=== PATIENT | female | born 1935 | race Caucasian/White ===

== ENCOUNTER 2017-09-11 10:06 | Day surgery (SDC) | payer MEDICARE, OTHER ==
[2017-09-11] MEDS: Phenylephrine 10% Ophth Soln 5 ML Bot EYERT SCH ×3 (10:27→11:02)
[2017-09-11] MEDS ORDERED: Sodium Chloride 0.9% 5 ML Syringe FLUSH PRN (10:30)
[2017-09-11] MEDS ORDERED: Gatifloxacin 0.5% Ophth Soln 2.5 ML Bot EYERT SCH (10:30)
[2017-09-11] MEDS ORDERED: Lactated Ringers 1,000 ML IV SCH (10:30)
[2017-09-11] MEDS: Cyclopentolate 1% Opth Soln 2 ML Bottle EYERT SCH ×3 (10:40→11:12)
[2017-09-11] MEDS ORDERED: Water For Irrigation,Sterile 1,500 ML Container ONE (12:20)
[2017-09-11] MEDS ORDERED: Balanced Salt Solution Ophth Irrig 15 ML Bottle EYERT ONE (12:20)
[2017-09-11] MEDS ORDERED: Balanced Salt Solution Plus Ophth Irrig 500 ML Bottle IOCULAR ONE (12:20)
[2017-09-11] MEDS ORDERED: Carbachol 0.01% Intraocular 1.5 ML Vial EYERT ONE (12:21)
[2017-09-11] MEDS ORDERED: Dexamethasone/Neomycin/Polymyxin B Ophth Oint 3.5 GM Tube EYERT ONE (12:21)
[2017-09-11] MEDS ORDERED: EPINEPHrine 1 MG/ML SDV ONE (12:21)
[2017-09-11] MEDS ORDERED: Lidocaine 2% with EPINEPHrine 1:100,000 20 ML MDV INJECT ONE (12:21)
[2017-09-11] MEDS ORDERED: Lidocaine 1% 10 ML MDV INFILT ONE (12:22)
[2017-09-11] MEDS ORDERED: Hyaluronate Sodium 1% 0.85 ML Syringe IOCULAR ONE (12:22)
[2017-09-11] MEDS ORDERED: Tetracaine HCl/PF 0.5% 4 ML Bottle EYEBOTH ONE (12:22)
[2017-09-11 12:48] VITALS: BP 155/33
--- NOTE | 2017-09-12 08:42 | OR ---
DATE OF SURGERY: 09/11/2017 SURGEON: Eriberto Sánchez MD PREOPERATIVE DIAGNOSIS: Cataract, right eye. POSTOPERATIVE DIAGNOSIS: Cataract, right eye. OPERATION PERFORMED: Phacoemulsification with posterior chamber lens insertion, right eye. HISTORY: The patient presents at this time having more and more difficulty trying to read with right eye. Her vision is 20/400 for the right eye. 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 FINDINGS: The patient was taken to the operating room where appropriate anesthesia, sedation and monitoring were provided. A retrobulbar block was given on the right side. The eye was massaged and was found to be appropriately soft. The eye and eyelids were then prepped and draped in the usual sterile manner. A lid speculum was placed. A micro sharp blade was used to enter the anterior chamber inside the limbus superior-temporally. Xylocaine was irrigated into the eye at this site. Healon was irrigated into the eye through this site. Then using a 2.85 mm corneal blade an entry was made into the anterior chamber just inside the limbus temporally. Healon was again irrigated into the eye. Then using a cystitome, the anterior capsulorrhexis was created. The lens nucleus was hydrodissected using a 27 gauge cannula and balanced salt solution. The phacoemulsification unit was introduced through the temporal site and the Jonnathan spatula through the superior temporal site. In so doing, the lens nucleus was phacoemulsified. The cortical fragments of the lens were removed using the irrigation aspiration unit. The posterior capsule was polished. Healon was irrigated into the eye. The posterior chamber lens was inserted and rotated into position inside the capsular bag. The Healon was irrigated out of the eye. Miostat was irrigated into the eye and the pupil rounded nicely. A single interrupted 10-0 Nylon suture was placed through the temporal corneal incision site. Balanced salt solution was irrigated into the eye. The wound was tested and found to be tight. Maxitrol ointment was placed into the patient's right eye. The eyelids were closed and an eye patch and garcia shield were placed. The patient left the operating room in good condition. /[id number]/MODL
== END 2017-09-11 13:01 | disposition home or self-care (01) ==
LOC: KA.SDS 10:06
PROVIDERS: ATTEND Ophthalmology
DX: H25.811 Combined forms of age-related cataract, right eye (principal); I10 Essential (primary) hypertension; E78.5 Hyperlipidemia, unspecified; E55.9 Vitamin D deficiency, unspecified; Z79.82 Long term (current) use of aspirin; Z79.899 Other long term (current) drug therapy
CPT/HCPCS: 66984; A9270; C1780; J0171; J7120; 00142

== ENCOUNTER 2017-11-20 09:30 | Day surgery (SDC) | payer MEDICARE, OTHER ==
[~2017-11-20 09:30] MED LIST: Cyclopentolate 1% Opth Soln 2 ML Bottle EYELF SCH; Gatifloxacin 0.5% Ophth Soln 2.5 ML Bot EYELF SCH; Lactated Ringers 1,000 ML IV SCH; Phenylephrine 10% Ophth Soln 5 ML Bot EYELF SCH; Sodium Chloride 0.9% 5 ML Syringe FLUSH PRN
[2017-11-20] MEDS ORDERED: Gatifloxacin 0.5% Ophth Soln 2.5 ML Bot EYELF SCH ×2 (09:45→10:30)
[2017-11-20] MEDS: Phenylephrine 10% Ophth Soln 5 ML Bot EYELF SCH ×3 (09:50→10:23)
[2017-11-20] MEDS: Cyclopentolate 1% Opth Soln 2 ML Bottle EYELF SCH ×3 (10:00→10:33)
[2017-11-20] MEDS ORDERED: Lactated Ringers 1,000 ML IV SCH (10:30)
[2017-11-20] MEDS ORDERED: Sodium Chloride 0.9% 5 ML Syringe FLUSH PRN (10:30)
[2017-11-20] MEDS ORDERED: Cyclopentolate 1% Opth Soln 2 ML Bottle EYELF SCH (11:00)
[2017-11-20] MEDS ORDERED: Phenylephrine 10% Ophth Soln 5 ML Bot EYELF SCH (11:00)
[2017-11-20] MEDS ORDERED: EPINEPHrine 1 MG/ML SDV ONE (11:45)
[2017-11-20] MEDS ORDERED: Balanced Salt Solution Ophth Irrig 15 ML Bottle EYELF ONE (11:45)
[2017-11-20] MEDS ORDERED: Carbachol 0.01% Intraocular 1.5 ML Vial EYELF ONE (11:45)
[2017-11-20] MEDS ORDERED: Balanced Salt Solution Plus Ophth Irrig 500 ML Bottle IOCULAR ONE (11:45)
[2017-11-20] MEDS ORDERED: Water For Irrigation,Sterile 1,500 ML Container IRR ONE (11:45)
[2017-11-20] MEDS ORDERED: Lidocaine 2% with EPINEPHrine 1:100,000 20 ML MDV INJECT ONE (11:46)
[2017-11-20] MEDS ORDERED: Lidocaine 1% 10 ML MDV INJECT ONE (11:46)
[2017-11-20] MEDS ORDERED: Dexamethasone/Neomycin/Polymyxin B Ophth Oint 3.5 GM Tube EYELF ONE (11:46)
[2017-11-20] MEDS ORDERED: Tetracaine HCl/PF 0.5% 4 ML Bottle EYEBOTH ONE (11:47)
[2017-11-20] MEDS ORDERED: Hyaluronate Sodium 1% 0.85 ML Syringe IOCULAR ONE (11:47)
[2017-11-20 12:37] VITALS: BP 126/54
--- NOTE | 2017-11-20 18:45 | OR ---
DATE OF SURGERY: 11/20/2017 SURGEON: Eriberto Sánchez MD PREOPERATIVE DIAGNOSIS: Cataract, left eye. POSTOPERATIVE DIAGNOSIS: Cataract, left eye. OPERATION PERFORMED: Phacoemulsification with posterior chamber lens insertion, left eye. HISTORY: The patient presents at this time having more and more difficulties seeing to read. The current level of vision for the left eye is 20/400 and the lens has a 3+ nuclear sclerosis and a 3+ cortical change. 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 FINDINGS: The patient was taken to the operating room where appropriate anesthesia, sedation and monitoring were provided. A retrobulbar block was given on the left side. The eye was massaged and was found to be appropriately soft. The eye and eyelids were then prepped and draped in the usual sterile manner. A lid speculum was placed. A micro sharp blade was used to enter the anterior chamber inside the limbus inferior-temporally. Xylocaine was irrigated into the eye at this site. Healon was irrigated into the eye through this site. Then using a 2.85 mm corneal blade an entry was made into the anterior chamber just inside the limbus temporally. Healon was again irrigated into the eye. Then using a cystitome, the anterior capsulorrhexis was created. The lens nucleus was hydrodissected using a 27 gauge cannula and balanced salt solution. The phacoemulsification unit was introduced through the temporal site and the Jonnathan spatula through the inferior temporal site. In so doing, the lens nucleus was phacoemulsified. The cortical fragments of the lens were removed using the irrigation aspiration unit. The posterior capsule was polished. Healon was irrigated into the eye. The posterior chamber lens was inserted and rotated into position inside the capsular bag. The Healon was irrigated out of the eye. Miostat was irrigated into the eye and the pupil rounded nicely. A single interrupted 10-0 Nylon suture was placed through the temporal corneal incision site. Balanced salt solution was irrigated into the eye. The wound was tested and found to be tight. Maxitrol ointment was placed into the patient's left eye. The eyelids were closed and an eye patch and garcia shield were placed. The patient left the operating room in good condition. /[id number]/MODL
== END 2017-11-20 12:33 | disposition home or self-care (01) ==
LOC: KA.SDS 09:30
PROVIDERS: ATTEND Ophthalmology
DX: H25.812 Combined forms of age-related cataract, left eye (principal); I10 Essential (primary) hypertension; E78.5 Hyperlipidemia, unspecified; E55.9 Vitamin D deficiency, unspecified; Z79.82 Long term (current) use of aspirin; Z79.899 Other long term (current) drug therapy
CPT/HCPCS: 66984; A9270; J0171; J7120

== ENCOUNTER 2019-01-04 14:26 | Emergency (ER) | payer MEDICARE, OTHER ==
[2019-01-04] MEDS ORDERED: Sodium Chloride 0.9% 1,000 ML IV ONE (14:47)
[2019-01-04 15:15] VITALS: BP 125/47
[2019-01-04 15:26] LABS: ANION GAP 16.9 mmol/L (5-15); CHLORIDE,CL 101 mmol/L (98-115); SODIUM,NA 138 mmol/L (136-145)
[2019-01-04] MEDS ORDERED: Loperamide 2 MG Cap PO PRN (15:34)
--- NOTE | 2019-01-04 15:59 | EDM.PDOC ---
ED HPI GENERAL MEDICAL PROBLEM - General Chief Complaint: Gastrointestinal Problem Stated Complaint: HAD N/V DEHYDRATED?? Time Seen by Provider: 01/04/19 14:40 Source of Information: Reports: Patient ([id number]) History Limitations: Reports: No Limitations - History of Present Illness INITIAL COMMENTS - FREE TEXT/NARRATIVE: 83-year-old female reports emergency room brought in by her son today with complaints of diarrhea and nausea and vomiting is occurred since Sunday. Patient denies any fever or chills. No shortness of breath no chest pain. No headaches. She's had several bouts of diarrhea since Sunday and vomiting on Sunday. She's had one episode today where she has vomited. She has not had any significant appetite. She states that she has not been drinking water as she thought may be that this would contribute to her diarrhea getting worse. Her neighbor stopped over and gave her some antidiarrhea medication which she is taking yesterday. She sees Joanna waters. She denies a significant abdominal pain. No dysuria or hematuria. Lab work was ordered and IV left antecubital with 1 L normal saline was started. Onset: Gradual Onset Date: 12/31/18 Duration: Day(s):, Recurring Location: Reports: Generalized Quality: Reports: Ache Severity: Moderate Improves with: Reports: None Worsens with: Reports: None Associated Symptoms: Reports: Malaise, Nausea/Vomiting. Denies: Confusion, Chest Pain, Cough, Diaphoresis, Fever/Chills - Related Data Allergies Allergy/AdvReac Type Severity Reaction Status Date / Time No Known Drug Allergies Allergy NKDA Verified 01/04/19 15:15 Home Meds: Home Meds Acetaminophen [Mapap] 500 mg PO Q4H PRN 01/15/15 [History] Alendronate [Fosamax] 70 mg PO Q7D@0600 01/15/15 [History] Amiodarone [Cordarone] 100 mg PO DAILY 01/15/15 [History] Calcium Carbonate 1 tab PO DAILY 01/15/15 [History] Clobetasol [Clobetasol 0.05%] 1 applic TOP BID 01/15/15 [History] Fish Oil/[place]-3 Fatty Acids [Fish Oil 1,000 MG] 1 tab PO DAILY 01/15/15 [ History] Multivitamin with Minerals [Multiple Vitamin] 1 tab PO DAILY 01/15/15 [History] Polyethylene Glycol [Polyox Wsr-301] 1 pack PO DAILY 01/15/15 [History] Simvastatin [Zocor] 20 mg PO BEDTIME 01/15/15 [History] Vitamin B Complex [B Complex] 1 each PO DAILY 01/15/15 [History] Vitamin E 400 unit PO DAILY 01/15/15 [History] Aspirin [Halfprin] 81 mg PO BRK 07/21/16 [History] Betamethasone/Propylene Glyc [Betamethasone DP Aug 0.05%] 1 ml TP BID 07/21/16 [ History] Gabapentin [Neurontin] 100 mg PO BEDTIME 09/07/17 [History] Losartan [Cozaar] 100 mg PO DAILY 09/07/17 [History] amLODIPine [Norvasc] 2.5 mg PO DAILY 09/07/17 [History] Cholecalciferol (Vitamin D3) [Vitamin D3] 2,000 unit PO DAILY 11/09/17 [History] Past Medical History HEENT History: Reports: Cataract, Impaired Vision, Sinusitis Other HEENT History: glasses, false teeth Cardiovascular History: Reports: Afib, Angina, Arrhythmia, Heart Murmur, High Cholesterol, Hypertension, SOB on Exertion Respiratory History: Reports: SOB REHABILITATION 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 History: Reports: Musculoskeletal History: Reports: Arthritis Neurological History: Reports: None Hematologic History: Reports: None Immunologic History: Reports: None - Infectious Disease History Infectious Disease History: Reports: Measles, Pertussis (Whooping Cough) - Past Surgical History HEENT Surgical History: Reports: Cataract Surgery, Oral Surgery GI Surgical History: Reports: Colonoscopy Neurological Surgical History: Reports: None Social & Family History - Family History Family Medical History: Noncontributory - Tobacco Use Smoking Status *Q: Unknown Ever Smoked - Caffeine Use Caffeine Use: Reports: Coffee ED ROS GENERAL - Review of Systems Review Of Systems: See Below Constitutional: Reports: No Symptoms, Malaise. Denies: Fever, Chills, Diaphoresis HEENT: Reports: No Symptoms Respiratory: Denies: Shortness of Breath, Cough Cardiovascular: Reports: Blood Pressure Problem. Denies: Chest Pain, Dyspnea on Exertion, Edema Endocrine: Reports: No Symptoms GI/Abdominal: Reports: Anorexia, Diarrhea, Nausea, Vomiting. Denies: Abdominal Pain : Denies: Discharge, Dysuria, Flank Pain, Hematuria, Incontinence Musculoskeletal: Reports: No Symptoms Skin: Reports: No Symptoms Neurological: Reports: No Symptoms Hematologic/Lymphatic: Reports: No Symptoms Immunologic: Reports: No Symptoms ED EXAM, GI/ABD - Physical Exam Exam: See Below Exam Limited By: No Limitations General Appearance: Alert, WD/WN, No Apparent Distress Eyes: Bilateral: Normal Appearance, EOMI Ears: Normal External Exam, Normal Canal, Hearing Grossly Normal, Normal TMs, Other (Cerumen impacting visualization of the TM on the right ear) Nose: Normal Inspection, Normal Mucosa, No Blood Throat/Mouth: Normal Inspection, Normal Lips, Normal Teeth, Normal Gums, Normal Oropharynx, Normal Voice, No Airway Compromise Head: Atraumatic, Other Neck: Normal Inspection, Supple, Non-Tender, Full Range of Motion. No: Carotid Bruit, Lymphadenopathy (L), Lymphadenopathy (R), Tender Midline, Thyromegaly Respiratory/Chest: No Respiratory Distress, Lungs Clear, Normal Breath Sounds, No Accessory Muscle Use, Chest Non-Tender Cardiovascular: Normal Peripheral Pulses, Regular Rate, Rhythm, No Edema, No JVD , Systolic Murmur GI/Abdominal Exam: Normal Bowel Sounds, Soft, Non-Tender, No Abnormal Bruit, No Mass Back Exam: Normal Inspection Extremities: Normal Inspection, Normal Range of Motion, No Pedal Edema Neurological: Alert, Oriented, No Motor/Sensory Deficits Psychiatric: Normal Affect, Normal Mood Skin Exam: Warm, Dry, Intact, Normal Color, No Rash Lymphatic: No Adenopathy Course - Vital Signs Last Recorded V/S: Last Vital Signs Temp 98 F 01/04/19 14:40 Pulse 62 01/04/19 14:40 Resp 14 01/04/19 14:40 BP 125/47 L 01/04/19 14:40 Pulse Ox 95 01/04/19 14:40 - Orders/Labs/Meds Orders: Active Orders 24 hr Category Date Time Status Loperamide [Imodium] Med 01/04/19 15:34 Active 4 mg PO Q6H PRN Medication Orders Loperamide HCl (Imodium) 4 mg PO Q6H PRN PRN Reason: Diarrhea Last Admin: 01/04/19 15:56 Dose: 4 mg Labs: Laboratory Tests 01/04/19 01/04/19 Range/Units 14:52 14:52 WBC 4.40 L (5.00-10.00) 10^3/uL RBC 4.76 (3.80-5.50) 10^6/uL Hgb 15.7 (12.0-16.0) g/dL Hct 46.2 (37.0-47.0) % MCV 97.1 H (82.0-92.0) fL MCH 33.0 H (27.0-31.0) pg MCHC 34.0 (32.0-36.0) g/dL RDW 12.8 (11.5-14.5) % Plt Count 169 (150-400) 10^3/uL MPV 9.1 (7.4-10.4) fL Immature Gran % (Auto) 0.0 (0.0-5.0) % Neut % (Auto) 59.6 (50.0-70.0) % Lymph % (Auto) 24.5 (20.0-40.0) % [place]arrard % (Auto) 15.7 H (2.0-8.0) % Eos % (Auto) 0.0 L (1.0-3.0) % Baso % (Auto) 0.2 (0.0-1.0) % Immature Gran # (Auto) 0.00 (0.00-0.50) 10^3/uL Neut # (Auto) 2.62 (2.50-7.00) 10^3/uL Lymph # (Auto) 1.08 (1.00-4.00) 10^3/uL [place]ard # (Auto) 0.69 (0.10-0.80) 10^3/uL Eos # (Auto) 0.00 L (0.10-0.30) 10^3/uL Baso # (Auto) 0.01 (0.00-0.10) 10^3/uL Sodium 138 (136-145) mmol/L Potassium 3.6 (3.3-5.3) mmol/L Chloride 101 (98-115) mmol/L Carbon Dioxide 23.7 (21.0-32.0) mmol/L Anion Gap 16.9 H (5-15) mmol/L BUN 24 (6-25) mg/dL Creatinine 0.89 (0.51-1.17) mg/dL Est Cr Clr Drug Dosing 44.84 mL/min Estimated GFR (MDRD) > 60 mL/min Glucose 104 H (75 - 99) mg/dL Calcium 8.4 L (8.7-10.3) mg/dL Meds: Medications Generic Name Dose Route Start Last Admin Trade Name Frenimesh PRN Reason Stop Dose Admin Loperamide HCl 4 mg 01/04/19 15:34 01/04/19 15:56 Imodium PO 4 mg Q6H PRN Administration Diarrhea Discontinued Medications Generic Name Dose Route Start Last Admin Trade Name Lorena PRN Reason Stop Dose Admin Sodium Chloride 1,000 mls @ 999 mls/hr 01/04/19 14:47 01/04/19 15:02 Normal Saline IV 01/04/19 15:47 999 mls/hr .BOLUS ONE Administration - Re-Assessments/Exams Free Text/Narrative Re-Assessment/Exam: 01/04/19 15:59 1 L normal saline is currently being given through IV left antecubital. Imodium by mouth given. Patient is not currently complaining of nausea. She has not vomited or had an episode of diarrhea in the emergency room. She reports no pain Departure - Departure Time of Disposition: 16:32 Disposition: Home, Self-Care 01 Condition: Good Clinical Impression: Diarrhea, Vomiting, Dehydration, mild - Discharge Information Instructions: Viral Gastroenteritis, Adult, Dehydration, Elderly, [id number] Referrals: Joanna Waters, VIDEO GAME ENGINEER [Primary Care Provider] - Forms: ED Department Discharge Additional Instructions: 1. Continue with the Imodium 3 times a day with the diarrhea complaints until improves. 2. A shunt was encouraged to drink plenty of oral fluids, water. Avoid caffeinated averages and coffee 3. Encourage a simple bland diet. 4. Follow-up with your primary care next week if symptoms persist - My Orders Last 24 Hours: My Active Orders 01/04/19 15:34 Loperamide [Imodium] 4 mg PO Q6H PRN - Assessment/Plan Last 24 Hours: My Active Orders 01/04/19 15:34 Loperamide [Imodium] 4 mg PO Q6H PRN Assessment:: 1. Nausea vomiting resolved 2. Diarrhea, treating with Imodium AD 3. Dehydration mild, 1 L normal saline fluids Plan: 1. Continue with the Imodium 3 times a day with the diarrhea complaints until improves. 2. A shunt was encouraged to drink plenty of oral fluids, water. Avoid caffeinated averages and coffee 3. Encourage a simple bland diet. 4. Follow-up with your primary care next week if symptoms persist.
== END 2019-01-04 16:42 | disposition home or self-care (01) ==
LOC: KA.ED 14:26
DX: E86.0 Dehydration (principal); R19.7 Diarrhea, unspecified; R11.2 Nausea with vomiting, unspecified; I48.91 Unspecified atrial fibrillation; M19.90 Unspecified osteoarthritis, unspecified site; Z79.82 Long term (current) use of aspirin; Z79.899 Other long term (current) drug therapy; Z98.49 Cataract extraction status, unspecified eye; Z98.890 Other specified postprocedural states
CPT/HCPCS: 80048; 85025; 96360; 99284-25; A9270-GY; J7030

== ENCOUNTER 2019-06-08 17:43 | Emergency (ER) | payer MEDICARE, OTHER ==
[2019-06-08] MEDS ORDERED: Sodium Chloride 0.9% 10 ML Syringe FLUSH PRN (18:04)
[2019-06-08] MEDS ORDERED: Aspirin 81 MG Tab.Chew ONE (18:09)
[2019-06-08] MEDS ORDERED: Nitroglycerin 2% Oint 1 GM UD Packet ONE (18:09)
[2019-06-08] MEDS ORDERED: Aspirin 81 MG Tab.Chew PO ONE (18:11)
[2019-06-08] MEDS: Aspirin 81 MG Tab.Chew PO ONE (18:12)
[2019-06-08] MEDS: Nitroglycerin 2% Oint 1 GM UD Packet TOP ONE (18:12)
--- NOTE | 2019-06-08 18:12 | EDM.PDOC ---
ED HPI GENERAL MEDICAL PROBLEM - General Chief Complaint: Cardiovascular Problem Stated Complaint: CHEST PAIN Time Seen by Provider: 06/08/19 17:50 Source of Information: Reports: Patient History Limitations: Reports: No Limitations - History of Present Illness INITIAL COMMENTS - FREE TEXT/NARRATIVE: 84 YO WF presents to ER complaining of chest pain which began 5 hours ago. Pt reports the pain is substernal and began after supper today. Pt reports the pain is constant pressure. Pt denies shortness of breath, nausea/vomiting, diaphoresis, dizziness. Pt denies any recent illness, no cough/congestion, no fever/chills. Pt appears to be in NAD. Alert and oriented x 3 but poor historian. Pt reports no dyspnea on exertion- was able to ambulate to car from home and from car to ER. Onset: Today Duration: Hour(s): (5) Location: Reports: Chest Quality: Reports: Pressure Severity: Moderate Improves with: Reports: None Worsens with: Reports: None Associated Symptoms: Reports: No Other Symptoms, Chest Pain. Denies: Cough, cough w sputum, Diaphoresis, Fever/Chills, Nausea/Vomiting, Shortness of Breath , Syncope Chest Pain Score (Numeric/FACES): 9 - Related Data Allergies Allergy/AdvReac Type Severity Reaction Status Date / Time No Known Drug Allergies Allergy NKDA Verified 06/08/19 18:20 Home Meds: Home Meds Acetaminophen [Mapap] 500 mg PO BID 01/15/15 [History] Alendronate [Fosamax] 70 mg PO Q7D@0600 01/15/15 [History] Amiodarone [Cordarone] 100 mg PO DAILY 01/15/15 [History] Calcium Carbonate 1,250 mg PO DAILY 01/15/15 [History] Fish Oil/[place]-3 Fatty Acids [Fish Oil 1,000 MG] 1,000 mg PO DAILY 01/15/15 [ History] Multivitamin with Minerals [Multiple Vitamin] 1 tab PO DAILY 01/15/15 [History] Polyethylene Glycol [Polyox Wsr-301] 1 pack PO DAILY 01/15/15 [History] Simvastatin [Zocor] 20 mg PO BEDTIME 01/15/15 [History] Vitamin B Complex [B Complex] 1 each PO DAILY 01/15/15 [History] Vitamin E 400 unit PO DAILY 05/08/15 [History] Aspirin [Halfprin] 81 mg PO ASDIRECTED 07/21/16 [History] Losartan [Cozaar] 100 mg PO DAILY 09/07/17 [History] amLODIPine [Norvasc] 2.5 mg PO DAILY 09/07/17 [History] Cholecalciferol (Vitamin D3) [Vitamin D3] 2,000 unit PO DAILY 11/09/17 [History] Past Medical History HEENT History: Reports: Cataract, Impaired Vision, Sinusitis Other HEENT History: glasses, false teeth Cardiovascular History: Reports: Afib, Angina, Arrhythmia, Heart Murmur, High Cholesterol, Hypertension, SOB on Exertion Respiratory History: Reports: 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: Musculoskeletal History: Reports: Arthritis Neurological History: Reports: None Hematologic History: Reports: None Immunologic History: Reports: None - Infectious Disease History Infectious Disease History: Reports: Measles, Pertussis (Whooping Cough) - Past Surgical History HEENT Surgical History: Reports: Cataract Surgery, Oral Surgery GI Surgical History: Reports: Colonoscopy Neurological Surgical History: Reports: None Social & Family History - Family History Family Medical History: Noncontributory - Caffeine Use Caffeine Use: Reports: Coffee ED ROS GENERAL - Review of Systems Review Of Systems: See Below Constitutional: Reports: No Symptoms HEENT: Reports: No Symptoms Respiratory: Reports: No Symptoms Cardiovascular: Reports: Chest Pain. Denies: Blood Pressure Problem, Dyspnea on Exertion, Lightheadedness, PND, Syncope Endocrine: Reports: No Symptoms GI/Abdominal: Reports: No Symptoms : Reports: No Symptoms Musculoskeletal: Reports: No Symptoms Skin: Reports: No Symptoms Neurological: Reports: No Symptoms Psychiatric: Reports: No Symptoms Hematologic/Lymphatic: Reports: No Symptoms Immunologic: Reports: No Symptoms ED EXAM, GENERAL - Physical Exam Exam: See Below Exam Limited By: No Limitations General Appearance: Alert, WD/WN, No Apparent Distress Head: Atraumatic, Normocephalic Neck: Normal Inspection, Supple, Non-Tender, Full Range of Motion Respiratory/Chest: No Respiratory Distress, Lungs Clear, Normal Breath Sounds, No Accessory Muscle Use, Chest Non-Tender Cardiovascular: Normal Peripheral Pulses, Regular Rate, Rhythm, No Edema, No Gallop, No JVD, No Rub, Systolic Murmur GI/Abdominal: Normal Bowel Sounds, Soft, Non-Tender, No Organomegaly, No Distention, No Abnormal Bruit, No Mass Back Exam: Normal Inspection, Full Range of Motion, NT Extremities: Normal Inspection, Normal Range of Motion, Non-Tender, Normal Capillary Refill, No Pedal Edema Neurological: Alert, Oriented, CN II-XII Intact, Normal Cognition, Normal Gait, Normal Reflexes, No Motor/Sensory Deficits Psychiatric: Normal Affect, Normal Mood Skin Exam: Warm, Dry, Intact, Normal Color, No Rash Lymphatic: No Adenopathy EKG INTERPRETATION EKG Date: 06/08/19 Time: 17:48 Rhythm: NSR Rate (Beats/Min): 99 [place]: LAD-Left [place] Deviation QRS: LBBB ST-T: Normal QT: Normal Comparison: NA - No Prior EKG Course - Vital Signs Last Recorded V/S: Last Vital Signs Temp 37.6 C 06/08/19 18:06 Pulse 106 H 06/08/19 19:13 Resp 21 H 06/08/19 18:22 BP 145/56 H 06/08/19 19:13 Pulse Ox 91 L 06/08/19 18:22 - Orders/Labs/Meds Orders: Active Orders 24 hr Category Date Time Status EKG Documentation Completion [RC] ASDIRECTED Care 06/08/19 18:05 Active Peripheral IV Care [RC] . DIRECTED Care 06/08/19 18:05 Active Nitroglycerin [Nitrostat] Med 06/08/19 18:53 Active 0.4 mg SL Q5M PRN Sodium Chloride 0.9% [Normal Saline] 1,000 ml Med 06/08/19 18:30 Active IV ASDIRECTED Sodium Chloride 0.9% [Saline Flush] Med 06/08/19 18:04 Active 10 ml FLUSH Q8HR PRN Peripheral IV Insertion Adult [OM.PC] Routine Oth 06/08/19 18:04 Ordered EKG 12 Lead [EK] Routine Ther 06/08/19 18:04 Ordered Medication Orders Sodium Chloride (Normal Saline) 1,000 mls @ 150 mls/hr IV ASDIRECTED GALLITO Last Admin: 06/08/19 18:45 Dose: 150 mls/hr Nitroglycerin (Nitrostat) 0.4 mg SL Q5M PRN PRN Reason: Chest Pain Last Admin: 06/08/19 18:58 Dose: 0.4 mg Sodium Chloride (Saline Flush) 10 ml FLUSH Q8HR PRN PRN Reason: keep vein open Labs: Laboratory Tests 06/08/19 06/08/19 Range/Units 18:00 18:00 WBC 15.01 H D (5.00-10.00) 10^3/uL RBC 4.09 (3.80-5.50) 10^6/uL Hgb 13.7 D (12.0-16.0) g/dL Hct 40.1 (37.0-47.0) % MCV 98.0 H (82.0-92.0) fL MCH 33.5 H (27.0-31.0) pg MCHC 34.2 (32.0-36.0) g/dL RDW 12.3 (11.5-14.5) % Plt Count 202 (150-400) 10^3/uL MPV 8.7 (7.4-10.4) fL Immature Gran % (Auto) 0.2 (0.0-5.0) % Neut % (Auto) 87.5 H (50.0-70.0) % Lymph % (Auto) 5.5 L (20.0-40.0) % Todd % (Auto) 6.5 (2.0-8.0) % Eos % (Auto) 0.1 L (1.0-3.0) % Baso % (Auto) 0.2 (0.0-1.0) % Immature Gran # (Auto) 0.03 (0.00-0.50) 10^3/uL Neut # (Auto) 13.14 H (2.50-7.00) 10^3/uL Lymph # (Auto) 0.82 L (1.00-4.00) 10^3/uL Todd # (Auto) 0.98 H (0.10-0.80) 10^3/uL Eos # (Auto) 0.01 L (0.10-0.30) 10^3/uL Baso # (Auto) 0.03 (0.00-0.10) 10^3/uL Sodium 134 L (136-145) mmol/L Potassium 4.2 (3.3-5.3) mmol/L Chloride 98 (98-115) mmol/L Carbon Dioxide 28.5 (21.0-32.0) mmol/L Anion Gap 11.7 (5-15) mmol/L BUN 15 (6-25) mg/dL Creatinine 0.74 (0.51-1.17) mg/dL Est Cr Clr Drug Dosing 52.98 mL/min Estimated GFR (MDRD) > 60 mL/min Glucose 123 H (75 - 99) mg/dL Calcium 9.6 (8.7-10.3) mg/dL Total Bilirubin 0.4 (0.2-1.0) mg/dL AST 24 (15-37) U/L ALT 24 (12-78) U/L Alkaline Phosphatase 56 (46-116) IU/L Creatine Kinase 54 (26-276) U/L CK-MB (CK-2) 1.20 (0.00-4.30) ng/mL Troponin I 0.18 H* (0.00-0.070) ng/mL Total Protein 7.3 (6.4-8.2) g/dL Albumin 3.56 (3.00-4.80) g/dL Meds: Medications Generic Name Dose Route Start Last Admin Trade Name Lorena PRN Reason Stop Dose Admin Sodium Chloride 1,000 mls @ 150 mls/hr 06/08/19 18:30 06/08/19 18:45 Normal Saline IV 150 mls/hr ASDIRECTED GALLITO Administration Nitroglycerin 0.4 mg 06/08/19 18:53 06/08/19 18:58 Nitrostat SL 0.4 mg Q5M PRN Administration Chest Pain Sodium Chloride 10 ml 06/08/19 18:04 Saline Flush FLUSH Q8HR PRN keep vein open Discontinued Medications Generic Name Dose Route Start Last Admin Trade Name Lorena PRN Reason Stop Dose Admin Aspirin 243 mg 06/08/19 18:10 06/08/19 18:12 Aspirin PO 06/08/19 18:11 243 mg ONETIME ONE Administration Heparin Sodium (Porcine) 5,000 units 06/08/19 19:11 06/08/19 19:15 Heparin Sodium IVPUSH 06/08/19 19:12 5,000 units ONETIME ONE Administration Heparin Sodium/Sodium Chloride 25,000 units in 250 mls @ 158.758 mls/hr 19:00 Heparin 25,000 Units In 1/2 Ns 250 Ml IV TITRATE GALLITO 250 UNITS/KG/HR Metoprolol Tartrate 5 mg 06/08/19 19:02 06/08/19 19:13 Lopressor IVPUSH 06/08/19 19:03 5 mg ONETIME ONE Administration Nitroglycerin 1 gm 06/08/19 18:11 06/08/19 18:12 Nitro-Bid 2% TOP 06/08/19 18:12 1 gm ONETIME ONE Administration Ticagrelor 180 mg 06/08/19 18:59 Brilinta PO 06/08/19 19:00 ONETIME ONE - Radiology Interpretation Free Text/Narrative:: CXR- RLL atelectasis vs infiltrate Departure - Departure Time of Disposition: 19:05 Disposition: DC/Tfer to Acute Hospital 02 Reason for Transfer *Q: Other Clinical Impression: Non-STEMI (non-ST elevated myocardial infarction) Referrals: Joanna Waters, ASSISTANT STORE MANAGER [Primary Care Provider] - Forms: ED Department Discharge, Interfacility Transfer EMTALA - My Orders Last 24 Hours: My Active Orders 06/08/19 18:04 Sodium Chloride 0.9% [Saline Flush] 10 ml FLUSH Q8HR PRN Peripheral IV Insertion Adult [OM.PC] Routine EKG 12 Lead [EK] Routine 06/08/19 18:05 EKG Documentation Completion [RC] ASDIRECTED Peripheral IV Care [RC] . DIRECTED 06/08/19 18:30 Sodium Chloride 0.9% [Normal Saline] 1,000 ml IV ASDIRECTED 06/08/19 18:53 Nitroglycerin [Nitrostat] 0.4 mg SL Q5M PRN - Assessment/Plan Last 24 Hours: My Active Orders 06/08/19 18:04 Sodium Chloride 0.9% [Saline Flush] 10 ml FLUSH Q8HR PRN Peripheral IV Insertion Adult [OM.PC] Routine EKG 12 Lead [EK] Routine 06/08/19 18:05 EKG Documentation Completion [RC] ASDIRECTED Peripheral IV Care [RC] . DIRECTED 06/08/19 18:30 Sodium Chloride 0.9% [Normal Saline] 1,000 ml IV ASDIRECTED 06/08/19 18:53 Nitroglycerin [Nitrostat] 0.4 mg SL Q5M PRN Assessment:: 1. Chest pain 2. new LBBB 3. elevated Trop I Plan: 1. transfer [facility]- 2. ASA/Nitro 3. oxygen 4. supportive care
[2019-06-08] MEDS: Sodium Chloride 0.9% 1,000 ML IV SCH (18:45)
[2019-06-08 18:46] LABS: ANION GAP 11.7 mmol/L (5-15); CHLORIDE,CL 98 mmol/L (98-115); SODIUM,NA 134 mmol/L (136-145)
[2019-06-08] MEDS: Nitroglycerin 0.4 MG Tab.SL SL PRN (18:58)
[2019-06-08] MEDS ORDERED: Heparin Sodium/0.45% NaCl 25,000 UNITS/250 ML BAG IV SCH (19:00)
--- NOTE | 2019-06-08 19:00 | CR ---
[id number] RAD/RAD Chest PA or AP 1V EXAM: RAD Chest PA or AP 1V INDICATION: CHEST PAIN COMPARISON: Cardiomegaly DISCUSSION: Linear parenchymal opacity in the right lung base, nonspecific but likely subsegmental atelectasis. Correlate for site of chest pain, as a developing pneumonia is possible. Otherwise, no significant cardiopulmonary abnormality. IMPRESSION: As above. Hakeem Hernandez MD 06/08/19 [id number] Thank you for allowing us to participate in the care of your patient.
[2019-06-08] MEDS: Metoprolol Tartrate 5 MG/5 ML SDV IVPUSH ONE (19:13)
[2019-06-08] MEDS: Heparin Sodium 5,000 Units/ML Vial IVPUSH ONE (19:15)
[2019-06-08] MEDS: Ticagrelor 90 MG Tab PO ONE (19:20)
[2019-06-08] MEDS ORDERED: Ticagrelor 90 MG Tab PO ONE (19:26)
[2019-06-08 19:28] VITALS: BP 135/45; PULSE 81
== END 2019-06-08 19:40 ==
LOC: KA.ED 17:43
DX: I21.4 Non-ST elevation (NSTEMI) myocardial infarction (principal); I10 Essential (primary) hypertension; E78.00 Pure hypercholesterolemia, unspecified; Z79.82 Long term (current) use of aspirin; Z79.899 Other long term (current) drug therapy
CPT/HCPCS: 71045; 80053; 82550; 82553; 84484; 85025; 87804; 93005; 96361; 96374; 96375; 99285; A9270; J1644; J3490; J7030; 99284

== ENCOUNTER 2021-08-22 16:51 | Inpatient (IN) | payer MEDICARE, OTHER ==
[2021-08-22] MEDS ORDERED: Sodium Chloride 0.9% 200 ML IV ONE (17:48)
[2021-08-22] MEDS ORDERED: Dextrose 5%-0.45% NaCl 1,000 ML IV SCH (18:00)
[2021-08-22 18:04] LABS: CHLORIDE,CL 100 mmol/L (98-107); SODIUM,NA 135 mmol/L (136-145)
[2021-08-22] MEDS ORDERED: Codeine/guaiFENesin 10-100 MG/5 ML Syrup 5 ML Cup ONE (18:05)
[2021-08-22] MEDS: Codeine/guaiFENesin 10-100 MG/5 ML Syrup 5 ML Cup PO PRN (18:19)
--- NOTE | 2021-08-22 18:56 | CR ---
[id number] RAD/RAD Chest PA And Lateral EXAM: RAD Chest PA And Lateral INDICATION: COUGH. COMPARISON: June 08, 2019. DISCUSSION: Cardiomediastinal silhouette is stable in size and contour. No infiltrate, effusion, pneumothorax, or edema. Dependent atelectasis at the lung bases bilaterally. IMPRESSION: No acute cardiopulmonary abnormality. Randy Lovett DO 08/22/21 [id number] Thank you for allowing us to participate in the care of your patient.
[2021-08-22] MEDS ORDERED: Aspirin 81 MG Tab.Chew PO ONE (19:43)
[2021-08-22] MEDS ORDERED: Metoprolol Succinate 25 MG Tab.ER PO ONE (19:47)
[2021-08-22] MEDS ORDERED: Clopidogrel 75 MG Tab PO ONE (19:47)
[2021-08-22] MEDS ORDERED: Metoprolol Tartrate 25 MG Tab PO ONE (19:53)
[2021-08-22] MEDS ORDERED: Metoprolol Tartrate 25 MG Tab ONE (20:00)
[2021-08-22] MEDS: Simvastatin 20 MG Tab PO SCH ×2 (22:11→22:14)
[2021-08-23] MEDS ORDERED: Metoprolol Tartrate 25 MG Tab PO ONE ×2 (00:50→05:00)
[2021-08-23] MEDS ORDERED: Metoprolol Tartrate 25 MG Tab ONE (00:56)
[2021-08-23] MEDS: Codeine/guaiFENesin 10-100 MG/5 ML Syrup 5 ML Cup PO PRN ×2 (03:07→08:51)
[2021-08-23] MEDS ORDERED: Rivaroxaban 15 MG Tab PO SCH (09:00)
[2021-08-23] MEDS ORDERED: Famotidine 20 MG Tab PO SCH (09:00)
[2021-08-23] MEDS ORDERED: Amiodarone/Dextrose,Iso-Osmotic 150 MG/100 ML Premix Bag IV ONE (10:38)
[2021-08-23] MEDS ORDERED: Amiodarone In Dextrose,Iso-Osm 360 MG in Premix Bag 1 BAG IV SCH ×2 (10:45)
[2021-08-23 10:49] VITALS: BP 97/64; PULSE 136
[2021-08-23] MEDS ORDERED: EPINEPHrine 1:10,000 1 MG/10 ML Syringe IVPUSH PRN (11:19)
[2021-08-23] MEDS ORDERED: Atropine 0.1 MG/ML 10 ML Syringe IVPUSH PRN (11:19)
[2021-08-23] MEDS ORDERED: Nitroglycerin 0.4 MG Tab.SL SL PRN (11:19)
[2021-08-23] MEDS ORDERED: Lidocaine 2% 100 MG/5 ML Syringe IVPUSH PRN (11:19)
--- NOTE | 2021-08-23 11:34 | PCM.DCSUM1 ---
Discharge Summary - Hospital Course Free Text/Narrative:: Date of admission: 08/22/21 Date of discharge: 08/23/21 Admission diagnoses: # Atrial fib with RVR - HR 110s to 150s # Elevated Troponin - Results of 295, 485, 547 this morning will repeat troponin prior to anticipated transfer to [place] for cardiology consultation # Elevated BNP; 480 on admission - Patient given metoprolol tartrate 12.5mg x 3 doses overnight - HR 110s to 150s this morning on rounds - Amiodarone gtt per Dr Hatfield ([facility]) - 150mg over 10 minutes, then 1mg/min for 6 hours, then 0.5mg x 18 hours - Continue home xarelto 15mg PO daily Discharge diagnoses: # Hypertension - losartan 100mg, metoprolol 25mg, spironolactone 25mg, lasix 20mg (HOLDING on admission) # Chronic systolic heart failure - last echo 12/15/20 - EF 55% # History of nonischemic cardiomyopathy # History of TIA # Hx of myopericarditis # Hyperlipidemia - simvastatin 20mg; Lipid panel on 05/25/21: Total cholesterol 140, LDL 66 # Vitamin D deficiency # Osteoporosis without current pathological fracture, unspecified osteoporosis type - fosamax 70mg weekly. Calcium/vitamin D supplementation. # Pancreatic cyst - Noted on 05/05/[address] x2 showing stable cyst. Again demonstrated 06/09/19 with recommendation to repeat MRI in 6mos. Did not complete MRI due to covid. Needing follow-up. # Constipation, unspecified constipation type - miralax daily PRN # On rivaroxaban therapy # Chronic right-sided low back pain without sciatica # seborrheic dermatitis/scalp itching see by dermatology in the past. Has tried numerous products. Started most recently by dermatology on clobetasol propionate solution and ketoconazole shampoo 2%. MISC meds: B-complex vitamin, fish oil, MVM, Vitamin E HPI: Patient presented to the [facility] clinic yesterday, 08/22/21 with c/o cough, runny nose for the past week. Patient denied any significant SOB, wheezing, nasal/chest congestion, no fever or chills. Patient was noted to be quite tachycardic on arrival to the clinic with irregularly irregular rhythm. EKG in clinic indicated Afib RVR with HR of 157. She endorsed mild palpitation symptoms in the morning, however was grossly asymptomatic. Patient denied chest pain, nausea, diaphoresis. Denied any orthopnea, PND, or edema. Denies any RAO, dizziness, or significant lightheadedness. She has a history of paroxysmal atrial fibrillation for which she was last cardioverted in June 2019.She is on low dose metoprolol succinate for rate control at 25mg and anticoagulated on xarelto 15mg PO daily. She was previously on amiodarone 200mg PO daily until earlier this year after remaining in NSR following successful cardioversion in 2019. History of angiogram in 2019 with no obstructive CAD discovered; no previous cardiac stenting. PMH includes non-ischemic cardiomyopathy with echo in 12/2020 with EF of 55%. Patient directly admitted to [facility] for afib RVR and additional diagnostics to include: BNP, troponin. Hospital course: 08/23/21: Patient c/o cough this am, improved with robitussin. Denies overt RI symptoms or palpitation; no chest pain, diaphoresis, SOB. No peripheral edema. CXR clear last evening upon admission; no central vascular congestion. Troponin elevated initially with two subsequent troponins increasing. BNP 480. Heart rate 110s to 150s on recruitment consultant this morning despite three oral doses of metoprolol tartrate given per Dr Gan overnight. No lasix given since admission. Patient in no apparent distress on rounds this morning, denies CP, SOB, palpitation symptoms. Continued to appreciate irregularly irregular rate and rhythm on auscultation. No peripheral edema. Wheezing and rhonchi, no respiratory distress. Case discussed with Dr Hatfield, [facility] who recommends amiodarone gtt of 150mg over 10 minutes followed by infusion of 1mg/min for 6 hours, then 0.5mg/min for 18 hours. Cardiology recommends transfer for additional cardiac workup given atrial fib with RVR and increasing troponin. Case discussed with hospitalist, Dr Hahn who agrees to admit patient. No beds currently available, [facility] to notify [facility] once a bed opens up to allow for patient transfer. Discharge and follow-up recommendations: - Discharge to [facility] for cardiology consultation, further workup and possible intervention as indicated - Medication changes at discharge: Amiodarone infusion per cardiology - Follow-up with with PCP after acute hospital stay. - Discharge Data Discharge Date: 08/23/21 Discharge Disposition: DC/Tfer to Acute Hospital 02 Condition: Fair - Referral to Home Health Primary Care Physician: Katharine Waters NP - Patient Instructions Diet: Heart Healthy Diet - Discharge Plan *PRESCRIPTION DRUG MONITORING PROGRAM REVIEWED*: Not Applicable *COPY OF PRESCRIPTION DRUG MONITORING REPORT IN PATIENT EDGAR: Not Applicable Home Medications: Home Meds Acetaminophen [Mapap] 500 mg PO BID 01/15/15 [History] Alendronate [Fosamax] 70 mg PO Q7D@0600 01/15/15 [History] Calcium Carbonate 1,250 mg PO DAILY 01/15/15 [History] Fish Oil/[place]-3 Fatty Acids [Fish Oil 1,000 MG] 1,000 mg PO DAILY 01/15/15 [History] Multivitamin with Minerals [Multiple Vitamin] 1 tab PO DAILY 01/15/15 [History] Polyethylene Glycol [Polyox Wsr-301] 1 pack PO DAILY 01/15/15 [History] Simvastatin [Zocor] 20 mg PO BEDTIME 01/15/15 [History] Vitamin B Complex [B Complex] 1 each PO DAILY 01/15/15 [History] Vitamin E 400 unit PO DAILY 01/15/15 [History] Losartan [Cozaar] 100 mg PO DAILY 09/07/17 [History] Cholecalciferol (Vitamin D3) [Vitamin D3] 2,000 unit PO DAILY 11/09/17 [History] Albuterol Sulfate [Proair Digihaler] 90 mcg IH Q4HR PRN 08/22/21 [History] Lutein/Min/Vit C/Vit E Acetate [Ocuvite Lutein] 1 cap PO DAILY 08/22/21 [History] Metoprolol Succinate [Toprol XL] 25 mg PO DAILY 08/22/21 [History] Polyvinyl Alcohol/Povidone [Artificial Tears Drops] 1 drop OP Q6HR PRN 08/22/21 [History] Rivaroxaban [Xarelto] 15 mg PO DAILY 08/22/21 [History] Spironolactone [Aldactone] 25 mg PO DAILY 08/22/21 [History] Amiodarone In Dextrose,Iso-Osm [Nexterone] 360 mg IV ASDIRECTED bag 08/23/21 [Rx] Furosemide [Lasix] 20 mg PO DAILY #0 08/23/21 [Rx] Oxygen Therapy Mode: Room Air - Discharge Summary/Plan Comment DC Time >30 min.: Yes Total # of Minutes for Discharge Time: 45 - General Info Date of Service: 08/23/21 Functional Status: Reports: Pain Controlled, Tolerating Diet, Ambulating. Denies: New Symptoms - Review of Systems General: Reports: No Symptoms HEENT: Reports: No Symptoms Pulmonary: Reports: Cough Cardiovascular: Reports: Dyspnea on Exertion (at baseline). Denies: Chest Pain, Palpitations, Orthopnea, Edema Gastrointestinal: Reports: No Symptoms Genitourinary: Reports: No Symptoms Musculoskeletal: Reports: No Symptoms Skin: Reports: No Symptoms Neurological: Reports: No Symptoms Psychiatric: Reports: No Symptoms - Patient Data Vitals - Most Recent: Last Vital Signs Temp 97.7 F 08/23/21 10:48 Pulse 136 H 08/23/21 10:48 Resp 20 08/23/21 10:48 BP 97/64 08/23/21 10:48 Pulse Ox 93 L 08/23/21 10:48 Weight - Most Recent: 151 lb 6.4 oz I&O - Last 24 hours: Intake & Output 08/22/21 08/23/21 08/23/21 22:59 06:59 14:59 Intake Total 200 975 Balance 200 975 Lab Results - Last 24 hrs: Laboratory Results - last 24 hr 08/22/21 08/22/21 08/22/21 Range/Units 17:20 17:25 17:25 WBC 9.69 (5.00-10.00) 10^3/uL RBC 4.12 (3.80-5.50) 10^6/uL Hgb 13.0 (12.0-16.0) g/dL Hct 39.1 (37.0-47.0) % MCV 94.9 H D (82.0-92.0) fL MCH 31.6 H (27.0-31.0) pg MCHC 33.2 (32.0-36.0) g/dL RDW 12.7 (11.5-14.5) % Plt Count 209 (150-400) 10^3/uL MPV 9.2 (7.4-10.4) fL Immature Gran % (Auto) 0.2 (0.0-5.0) % Neut % (Auto) 65.0 (50.0-70.0) % Lymph % (Auto) 20.0 (20.0-40.0) % Orange % (Auto) 12.7 H (2.0-8.0) % Eos % (Auto) 1.9 (1.0-3.0) % Baso % (Auto) 0.2 (0.0-1.0) % Neut # (Auto) 6.30 (2.50-7.00) 10^3/uL Lymph # (Auto) 1.94 (1.00-4.00) 10^3/uL Orange # (Auto) 1.23 H (0.10-0.80) 10^3/uL Eos # (Auto) 0.18 (0.10-0.30) 10^3/uL Baso # (Auto) 0.02 (0.00-0.10) 10^3/uL Immature Gran # (Auto) 0.02 (0.00-0.50) 10^3/uL Sodium 135 L (136-145) mmol/L Potassium 4.7 (3.5-5.1) mmol/L Chloride 100 (98-107) mmol/L Carbon Dioxide 24.7 (21.0-32.0) mmol/L Anion Gap 15.0 (5-15) mmol/L BUN 21 H (7-18) mg/dL Creatinine 0.97 (0.51-1.17) mg/dL Est Cr Clr Drug Dosing TNP Estimated GFR (MDRD) 54 mL/min Glucose 116 (70-140) mg/dL Calcium 9.3 (8.7-10.3) mg/dL Magnesium 2.0 (1.8-2.4) mg/dL Total Bilirubin 0.2 (0.2-1.0) mg/dL AST 20 (15-37) U/L ALT 16 (14-63) U/L Alkaline Phosphatase 66 (46-116) U/L Troponin I High Sens (0-51.000) pg/mL B-Natriuretic Peptide (0-100) pg/mL Total Protein 6.9 (6.4-8.2) g/dL Albumin 3.19 L (3.40-5.00) g/dL TSH, Ultra Sensitive (0.340-4.820) uIU/mL SARS-CoV-2 RNA (CADE) Negative (NEGATIVE) 08/22/21 08/22/21 08/23/21 Range/Units 17:25 17:45 00:05 WBC (5.00-10.00) 10^3/uL RBC (3.80-5.50) 10^6/uL Hgb (12.0-16.0) g/dL Hct (37.0-47.0) % MCV (82.0-92.0) fL MCH (27.0-31.0) pg MCHC (32.0-36.0) g/dL RDW (11.5-14.5) % Plt Count (150-400) 10^3/uL MPV (7.4-10.4) fL Immature Gran % (Auto) (0.0-5.0) % Neut % (Auto) (50.0-70.0) % Lymph % (Auto) (20.0-40.0) % Orange % (Auto) (2.0-8.0) % Eos % (Auto) (1.0-3.0) % Baso % (Auto) (0.0-1.0) % Neut # (Auto) (2.50-7.00) 10^3/uL Lymph # (Auto) (1.00-4.00) 10^3/uL Orange # (Auto) (0.10-0.80) 10^3/uL Eos # (Auto) (0.10-0.30) 10^3/uL Baso # (Auto) (0.00-0.10) 10^3/uL Immature Gran # (Auto) (0.00-0.50) 10^3/uL Sodium (136-145) mmol/L Potassium (3.5-5.1) mmol/L Chloride (98-107) mmol/L Carbon Dioxide (21.0-32.0) mmol/L Anion Gap (5-15) mmol/L BUN (7-18) mg/dL Creatinine (0.51-1.17) mg/dL Est Cr Clr Drug Dosing Estimated GFR (MDRD) mL/min Glucose (70-140) mg/dL Calcium (8.7-10.3) mg/dL Magnesium (1.8-2.4) mg/dL Total Bilirubin (0.2-1.0) mg/dL AST (15-37) U/L ALT (14-63) U/L Alkaline Phosphatase (46-116) U/L Troponin I High Sens 295.500 H* 485.100 H* (0-51.000) pg/mL B-Natriuretic Peptide 480 H (0-100) pg/mL Total Protein (6.4-8.2) g/dL Albumin (3.40-5.00) g/dL TSH, Ultra Sensitive 1.242 (0.340-4.820) uIU/mL SARS-CoV-2 RNA (CADE) (NEGATIVE) 08/23/21 Range/Units 07:00 WBC (5.00-10.00) 10^3/uL RBC (3.80-5.50) 10^6/uL Hgb (12.0-16.0) g/dL Hct (37.0-47.0) % MCV (82.0-92.0) fL MCH (27.0-31.0) pg MCHC (32.0-36.0) g/dL RDW (11.5-14.5) % Plt Count (150-400) 10^3/uL MPV (7.4-10.4) fL Immature Gran % (Auto) (0.0-5.0) % Neut % (Auto) (50.0-70.0) % Lymph % (Auto) (20.0-40.0) % Orange % (Auto) (2.0-8.0) % Eos % (Auto) (1.0-3.0) % Baso % (Auto) (0.0-1.0) % Neut # (Auto) (2.50-7.00) 10^3/uL Lymph # (Auto) (1.00-4.00) 10^3/uL Orange # (Auto) (0.10-0.80) 10^3/uL Eos # (Auto) (0.10-0.30) 10^3/uL Baso # (Auto) (0.00-0.10) 10^3/uL Immature Gran # (Auto) (0.00-0.50) 10^3/uL Sodium (136-145) mmol/L Potassium (3.5-5.1) mmol/L Chloride (98-107) mmol/L Carbon Dioxide (21.0-32.0) mmol/L Anion Gap (5-15) mmol/L BUN (7-18) mg/dL Creatinine (0.51-1.17) mg/dL Est Cr Clr Drug Dosing Estimated GFR (MDRD) mL/min Glucose (70-140) mg/dL Calcium (8.7-10.3) mg/dL Magnesium (1.8-2.4) mg/dL Total Bilirubin (0.2-1.0) mg/dL AST (15-37) U/L ALT (14-63) U/L Alkaline Phosphatase (46-116) U/L Troponin I High Sens 547.300 H* (0-51.000) pg/mL B-Natriuretic Peptide (0-100) pg/mL Total Protein (6.4-8.2) g/dL Albumin (3.40-5.00) g/dL TSH, Ultra Sensitive (0.340-4.820) uIU/mL SARS-CoV-2 RNA (CADE) (NEGATIVE) Med Orders - Current: Current Medications Atropine Sulfate (Atropine 0.1 Mg/Ml 10 Ml Syringe) 0 mg IVPUSH ASDIRECTED PRN PRN Reason: Heart. Epinephrine HCl (Epinephrine 1:10,000 1 Mg/10 Ml Syringe) 1 mg IVPUSH ASDIRECTED PRN PRN Reason: Heart. Famotidine (Famotidine 20 Mg Tab) 20 mg PO DAILY [facility] Last Admin: 08/23/21 08:50 Dose: 20 mg Documented by: Guaifenesin/Codeine Phosphate (Codeine/Guaifenesin 10-100 Mg/5 Ml Syrup 5 Ml Cup) 5 ml PO Q6H PRN PRN Reason: Cough Last Admin: 08/23/21 08:51 Dose: 5 ml Documented by: Dextrose/Sodium Chloride (Dextrose 5%-1/2 Ns) 1,000 mls @ 50 mls/hr IV ASDIRECTED [facility] Last Admin: 08/22/21 19:41 Dose: 50 mls/hr Documented by: Amiodarone HCl/Dextrose 360 mg (/ Premix) 200 mls @ 33.3 mls/hr IV ASDIRECTED GALLITO; Protocol Last Admin: 08/23/21 11:17 Dose: 33.3 mls/hr Documented by: Lidocaine HCl (Lidocaine 2% 100 Mg/5 Ml Syringe) 0 mg IVPUSH ASDIRECTED PRN PRN Reason: Heart. Nitroglycerin (Nitroglycerin 0.4 Mg Tab.Sl) 0.4 mg SL ASDIRECTED PRN PRN Reason: Heart. Rivaroxaban (Rivaroxaban 15 Mg Tab) 15 mg PO DAILY [facility] Last Admin: 08/23/21 08:50 Dose: 15 mg Documented by: Simvastatin (Simvastatin 20 Mg Tab) 20 mg PO BEDTIME [facility] Last Admin: 08/22/21 22:14 Dose: Not Given Documented by: Discontinued Medications Amiodarone HCl/Dextrose (Amiodarone/Dextrose,Iso-Osmotic 150 Mg/100 Ml Premix Bag) 150 mg IV .BOLUS ONE; Protocol Stop: 08/23/21 10:39 Last Admin: 08/23/21 11:04 Dose: 150 mg Documented by: Aspirin (Aspirin 81 Mg Tab.Chew) 81 mg PO ONETIME ONE Stop: 08/22/21 19:44 Last Admin: 08/22/21 20:02 Dose: 81 mg Documented by: Clopidogrel Bisulfate (Clopidogrel 75 Mg Tab) 75 mg PO ONETIME ONE Stop: 08/22/21 19:48 Last Admin: 08/22/21 20:02 Dose: 75 mg Documented by: Guaifenesin/Codeine Phosphate (Codeine/Guaifenesin 10-100 Mg/5 Ml Syrup 5 Ml Cup) Confirm Administered Dose 5 ml .ROUTE .STK-MED ONE Stop: 08/22/21 18:06 Last Admin: 08/22/21 18:18 Dose: Not Given Documented by: Sodium Chloride (Normal Saline) 200 mls @ 999 mls/hr IV .BOLUS ONE Stop: 08/22/21 18:00 Last Admin: 08/22/21 18:03 Dose: 999 mls/hr Documented by: Metoprolol Succinate (Metoprolol Succinate 25 Mg Tab.Er) 25 mg PO ONETIME ONE Stop: 08/22/21 19:48 Last Admin: 08/22/21 20:06 Dose: Not Given Documented by: Metoprolol Tartrate (Metoprolol Tartrate 25 Mg Tab) 12.5 mg PO ONETIME ONE Stop: 08/22/21 19:54 Last Admin: 08/22/21 20:02 Dose: 12.5 mg Documented by: Metoprolol Tartrate (Metoprolol Tartrate 25 Mg Tab) Confirm Administered Dose 25 mg .ROUTE .STK-MED ONE Stop: 08/22/21 20:01 Last Admin: 08/22/21 20:02 Dose: Not Given Documented by: Metoprolol Tartrate (Metoprolol Tartrate 25 Mg Tab) Confirm Administered Dose 25 mg .ROUTE .STK-MED ONE Stop: 08/23/21 00:57 Last Admin: 08/23/21 01:45 Dose: Not Given Documented by: Metoprolol Tartrate (Metoprolol Tartrate 25 Mg Tab) 12.5 mg PO ONETIME ONE Stop: 08/23/21 00:51 Last Admin: 08/23/21 01:00 Dose: 12.5 mg Documented by: Metoprolol Tartrate (Metoprolol Tartrate 25 Mg Tab) 12.5 mg PO ONETIME ONE Stop: 08/23/21 05:01 Last Admin: 08/23/21 05:06 Dose: 12.5 mg Documented by: - Exam Quality Assessment: Reports: DVT Prophylaxis (on xarelto). Denies: Supplemental Oxygen General: Reports: Alert, Oriented, Cooperative, No Acute Distress HEENT: Reports: Pupils Equal, Pupils Reactive, Mucous Membr. Moist/[place] Neck: Reports: Supple, Trachea Midline Lungs: Reports: Decreased Breath Sounds, Rhonchi, Wheezing Cardiovascular: Reports: No Murmurs, Irregular Rhythm (irregularly irregular), Tachycardia GI/Abdominal Exam: Normal Bowel Sounds, Soft, Non-Tender, No Distention (Female) Exam: Deferred Rectal (Female) Exam: Deferred Back Exam: Reports: Normal Inspection, Full Range of Motion Extremities: Normal Inspection, Normal Range of Motion, Non-Tender, No Pedal Edema, Normal Capillary Refill Skin: Reports: Warm, Dry, Intact Neurological: Reports: No New Focal Deficit Psy/Mental Status: Reports: Alert, Normal Affect, Normal Mood #1 Interpretation EKG Date: 08/23/21 Time: 09:54 Rhythm: A-Fib Rate (Beats/Min): 124 P-Wave: Absent QRS: Normal ST-T: Normal QT: Normal Comparison: No Change EKG Interpretation Comments: Atrial fibrillation with RVR, ST & T wave abnormality, consider lateral ischemia
== END 2021-08-23 14:29 | DRG 309 ==
LOC: KA.MS 16:51
PROVIDERS: ADMIT Nurse Practitioner Family; ATTEND Family Medicine
DX: I48.0 Paroxysmal atrial fibrillation (principal); I50.22 Chronic systolic (congestive) heart failure; K86.2 Cyst of pancreas; I11.0 Hypertensive heart disease with heart failure; E55.9 Vitamin D deficiency, unspecified; M81.0 Age-related osteoporosis without current pathological fracture; R77.8 Other specified abnormalities of plasma proteins; Z20.822 Contact with and (suspected) exposure to COVID-19; M54.50 Low back pain, unspecified; G89.29 Other chronic pain; L21.9 Seborrheic dermatitis, unspecified; K59.00 Constipation, unspecified; K81.1 Chronic cholecystitis; E78.49 Other hyperlipidemia; E78.00 Pure hypercholesterolemia, unspecified; Z86.73 Personal history of transient ischemic attack (TIA), and cerebral infarction without residual deficits; Z79.899 Other long term (current) drug therapy; Z79.01 Long term (current) use of anticoagulants
CPT/HCPCS: 36415; 71046; 80053; 83735; 83880; 84443; 84484; 85025; 93005; A9270-GY; J0282; J7030; J7042; U0002

== ENCOUNTER 2022-05-18 12:34 | Emergency (ER) | payer MEDICARE, OTHER ==
[2022-05-18] MEDS ORDERED: Sodium Chloride 0.9% 10 ML Syringe FLUSH PRN (12:38)
[2022-05-18] MEDS ORDERED: Diltiazem 25 MG/5 ML SDV IVPUSH ONE (12:41)
[2022-05-18] MEDS ORDERED: Sodium Chloride 0.9% 1,000 ML ONE (12:50)
[2022-05-18] MEDS ORDERED: Sodium Chloride 0.9% 1,000 ML IV SCH (13:00)
[2022-05-18 13:06] LABS: ANION GAP 12.7 mmol/L (5-15)
[2022-05-18] MEDS ORDERED: Aspirin 81 MG Tab.Chew PO ONE (14:15)
[2022-05-18] MEDS ORDERED: Aspirin 81 MG Tab.Chew ONE (14:16)
[2022-05-18 17:15] VITALS: BP 121/75; PULSE 114
== END 2022-05-18 15:35 ==
LOC: KA.ED 12:34
DX: I48.91 Unspecified atrial fibrillation (principal); I21.4 Non-ST elevation (NSTEMI) myocardial infarction; I11.0 Hypertensive heart disease with heart failure; I50.9 Heart failure, unspecified; E87.1 Hypo-osmolality and hyponatremia; R79.89 Other specified abnormal findings of blood chemistry; R74.01 Elevation of levels of liver transaminase levels; Z20.822 Contact with and (suspected) exposure to COVID-19; Z79.899 Other long term (current) drug therapy
CPT/HCPCS: 36415; 71045; 80053; 83880; 84484; 85025; 93010; 96361; 96374; 99284; 99285-25; A9270-GY; J3490; J7030; U0002

== ENCOUNTER 2022-06-01 13:41 | Emergency (ER) | payer MEDICARE, OTHER ==
[2022-06-01 13:48] VITALS: BP 149/65; PULSE 66
[2022-06-01 14:27] LABS: ANION GAP 8.7 mmol/L (5-15)
== END 2022-06-01 18:43 ==
LOC: KA.ED 13:41
DX: R74.8 Abnormal levels of other serum enzymes (principal); I50.9 Heart failure, unspecified; R06.02 Shortness of breath; R79.89 Other specified abnormal findings of blood chemistry; Z79.899 Other long term (current) drug therapy; Z79.82 Long term (current) use of aspirin
CPT/HCPCS: 36415; 71045; 80053; 83880; 84484; 85025; 93005; 93010; 99284; 99285

== ENCOUNTER 2023-01-01 10:40 | Emergency (ER) | payer MEDICARE, OTHER ==
[2023-01-01] MEDS ORDERED: Sodium Chloride 0.9% 10 ML Syringe FLUSH PRN (10:47)
[2023-01-01 11:15] LABS: ANION GAP 12.1 mmol/L (5-15); CHLORIDE,CL 101 mmol/L (98-107); SODIUM,NA 135 mmol/L (136-145)
[2023-01-01 11:17] LABS: ESTIMATED GFR 46 mL/min (>=60)
[2023-01-01] MEDS: Furosemide 40 MG/4 ML VIAL IVPUSH ONE (12:00)
[2023-01-01] MEDS ORDERED: Diltiazem 125 MG in Sodium Chloride 0.9% 100 ML IV SCH (12:15)
[2023-01-01] MEDS: Heparin Sodium 5,000 Units/ML Vial IVPUSH ONE (12:30)
[2023-01-01] MEDS: Diltiazem 25 MG/5 ML SDV IVPUSH ONE (12:51)
[2023-01-01] MEDS: Diltiazem 125 MG in Sodium Chloride 0.9% 100 ML IV SCH (12:55)
[2023-01-01] MEDS: Heparin Sodium/D5W 250 ML IV SCH (13:01)
[2023-01-02 12:37] VITALS: BP 105/60; PULSE 120
== END 2023-01-01 13:42 ==
LOC: KA.ED 10:40
DX: I21.4 Non-ST elevation (NSTEMI) myocardial infarction (principal); I48.91 Unspecified atrial fibrillation; R74.8 Abnormal levels of other serum enzymes; I50.9 Heart failure, unspecified; R79.89 Other specified abnormal findings of blood chemistry; I11.0 Hypertensive heart disease with heart failure; M19.90 Unspecified osteoarthritis, unspecified site; Z20.822 Contact with and (suspected) exposure to COVID-19; Z79.899 Other long term (current) drug therapy; Z79.82 Long term (current) use of aspirin
CPT/HCPCS: 36415; 71045; 80053; 83880; 84484; 85025; 85730; 93005; 93010; 96365; 96368; 96375; 96376; 99284; 99285-25; J1644; J1940; J3490; U0002

== ENCOUNTER 2023-04-30 10:49 | Emergency (ER) | payer MEDICARE, OTHER ==
[2023-04-30] MEDS ORDERED: Sodium Chloride 0.9% 10 ML Syringe FLUSH PRN (10:56)
[2023-04-30] MEDS ORDERED: Diltiazem 25 MG/5 ML SDV IVPUSH ONE (11:05)
[2023-04-30] MEDS ORDERED: Sodium Chloride 0.9% 500 ML IV SCH (11:15)
[2023-04-30 11:17] LABS: BASOPHILS ABSOLUTE AUTO 0.04 10^3/uL (0.00-0.10); BASOPHILS PERCENT AUTO 0.4 % (0.0-1.0); EOSINOPHILS ABSOLUTE AUTO 0.06 10^3/uL (0.10-0.30); EOSINOPHILS PERCENT AUTO 0.6 % (1.0-3.0); HEMATOCRIT 37.1 % (37.0-47.0); HEMOGLOBIN 11.7 g/dL (12.0-16.0); IMMATURE GRAN ABSOLUTE AUTO 0.01 10^3/uL (0.00-0.50); IMMATURE GRAN PERCENT AUTO 0.1 % (0.0-5.0); LYMPHOCYTES ABSOLUTE AUTO 1.27 10^3/uL (1.00-4.00); LYMPHOCYTES PERCENT AUTO 12.9 % (20.0-40.0); MEAN CORPUSCULAR HGB CONC 31.5 g/dL (32.0-36.0); MEAN CORPUSCULAR VOLUME 98.1 fL (82.0-92.0); MEAN PLATELET VOLUME 8.7 fL (7.4-10.4); MONOCYTES ABSOLUTE AUTO 1.16 10^3/uL (0.10-0.80); MONOCYTES PERCENT AUTO 11.8 % (2.0-8.0); NEUTROPHILS ABSOLUTE AUTO 7.32 10^3/uL (2.50-7.00); NEUTROPHILS PERCENT AUTO 74.2 % (50.0-70.0); PLATELET COUNT,PLT 215 10^3/uL (150-400); RED BLOOD CELL COUNT 3.78 10^6/uL (3.80-5.50); RED CELL DISTRIBUTION WIDTH 14.4 % (11.5-14.5); WHITE BLOOD CELL COUNT,WBC 9.86 10^3/uL (5.00-10.00)
[2023-04-30 11:32] VITALS: BP 108/65; PULSE 145
[2023-04-30 11:34] LABS: ALBUMIN 3.1 g/dL (3.40-5.00); ANION GAP 14.5 mmol/L (5-15); BILIRUBIN TOTAL 0.4 mg/dL (0.2-1.0); CARBON DIOXIDE,CO2 23.6 mmol/L (21.0-32.0); CREATININE 1.13 mg/dL (0.51-1.17); EST CRCL DRUG DOSING (CG) 30.97 mL/min; POTASSIUM,K 4.1 mmol/L (3.5-5.1); PROTEIN TOTAL,TP 7.1 g/dL (6.4-8.2)
[2023-04-30 11:59] LABS: INR 1.2 (0.9-1.1); PROTHROMBIN TIME 12.2 SEC (9.2-11.2); PTT,PARTIAL THROMBOPLSTIN TIME 29.5 SEC (22.8-31.4)
== END 2023-04-30 12:40 ==
LOC: KA.ED 10:49
DX: I48.91 Unspecified atrial fibrillation (principal); R77.8 Other specified abnormalities of plasma proteins; Z79.899 Other long term (current) drug therapy; Z91.048 Other nonmedicinal substance allergy status
CPT/HCPCS: 71045; 80053; 83880; 84484; 85025; 85610; 85730; 93010; 96374; 99284; 99285-25; J3490

== ENCOUNTER 2023-09-05 11:27 | Emergency (ER) | payer MEDICARE, OTHER ==
[2023-09-05] MEDS ORDERED: Sodium Chloride 0.9% 10 ML Syringe FLUSH PRN (11:45)
[2023-09-05 11:57] LABS: BASOPHILS ABSOLUTE AUTO 0.01 10^3/uL (0.00-0.10); BASOPHILS PERCENT AUTO 0.1 % (0.0-1.0); EOSINOPHILS ABSOLUTE AUTO 0.03 10^3/uL (0.10-0.30); EOSINOPHILS PERCENT AUTO 0.3 % (1.0-3.0); HEMATOCRIT 36.9 % (37.0-47.0); HEMOGLOBIN 11.8 g/dL (12.0-16.0); IMMATURE GRAN ABSOLUTE AUTO 0.03 10^3/uL (0.00-0.50); IMMATURE GRAN PERCENT AUTO 0.3 % (0.0-5.0); LYMPHOCYTES ABSOLUTE AUTO 0.98 10^3/uL (1.00-4.00); LYMPHOCYTES PERCENT AUTO 11.4 % (20.0-40.0); MEAN CORPUSCULAR HEMOGLOBIN 29.9 pg (27.0-31.0); MEAN CORPUSCULAR VOLUME 93.7 fL (82.0-92.0); MEAN PLATELET VOLUME 8.8 fL (7.4-10.4); MONOCYTES ABSOLUTE AUTO 0.73 10^3/uL (0.10-0.80); MONOCYTES PERCENT AUTO 8.5 % (2.0-8.0); NEUTROPHILS ABSOLUTE AUTO 6.85 10^3/uL (2.50-7.00); NEUTROPHILS PERCENT AUTO 79.4 % (50.0-70.0); PLATELET COUNT,PLT 215 10^3/uL (150-400); RED BLOOD CELL COUNT 3.94 10^6/uL (3.80-5.50); RED CELL DISTRIBUTION WIDTH 16.4 % (11.5-14.5); WHITE BLOOD CELL COUNT,WBC 8.63 10^3/uL (5.00-10.00)
[2023-09-05 12:16] LABS: ALBUMIN 3.36 g/dL (3.40-5.00); BILIRUBIN TOTAL 0.6 mg/dL (0.2-1.0); CALCIUM 9.3 mg/dL (8.7-10.3); CARBON DIOXIDE,CO2 24.5 mmol/L (21.0-32.0); CREATININE 1.9 mg/dL (0.51-1.17); EST CRCL DRUG DOSING (CG) 17.67 mL/min; POTASSIUM,K 4.5 mmol/L (3.5-5.1); PROTEIN TOTAL,TP 7.7 g/dL (6.4-8.2)
[2023-09-05] MEDS: Diltiazem 25 MG/5 ML SDV IVPUSH ONE (12:17)
[2023-09-05] MEDS: Furosemide 40 MG/4 ML VIAL IVPUSH ONE (12:54)
[2023-09-05 13:59] VITALS: BP 102/62; PULSE 98
[2023-09-05] MEDS: guaiFENesin 100 MG/5 ML Soln 5 ML UD Cup PO ONE (14:01)
== END 2023-09-05 14:27 ==
LOC: KA.ED 11:27
DX: I11.0 Hypertensive heart disease with heart failure (principal); I50.9 Heart failure, unspecified; I48.91 Unspecified atrial fibrillation; I21.4 Non-ST elevation (NSTEMI) myocardial infarction; R77.8 Other specified abnormalities of plasma proteins; Z91.048 Other nonmedicinal substance allergy status; Z79.01 Long term (current) use of anticoagulants; Z79.899 Other long term (current) drug therapy
CPT/HCPCS: 36415; 71045; 80053; 83880; 84484; 85025; 85730; 93010; 96374; 96375; 99284; 99285-25; A9270-GY; J1940; J3490

== ENCOUNTER 2024-02-25 08:32 | Emergency (ER) | payer MEDICARE, OTHER ==
[2024-02-25 08:58] LABS: BASOPHILS ABSOLUTE AUTO 0.01 10^3/uL (0.00-0.10); BASOPHILS PERCENT AUTO 0.1 % (0.0-1.0); EOSINOPHILS ABSOLUTE AUTO 0.04 10^3/uL (0.10-0.30); EOSINOPHILS PERCENT AUTO 0.5 % (1.0-3.0); HEMATOCRIT 26.2 % (37.0-47.0); HEMOGLOBIN 7.8 g/dL (12.0-16.0); IMMATURE GRAN ABSOLUTE AUTO 0.03 10^3/uL (0.00-0.50); IMMATURE GRAN PERCENT AUTO 0.4 % (0.0-5.0); LYMPHOCYTES ABSOLUTE AUTO 0.75 10^3/uL (1.00-4.00); LYMPHOCYTES PERCENT AUTO 9.8 % (20.0-40.0); MEAN CORPUSCULAR HEMOGLOBIN 26.4 pg (27.0-31.0); MEAN CORPUSCULAR HGB CONC 29.8 g/dL (32.0-36.0); MEAN CORPUSCULAR VOLUME 88.5 fL (82.0-92.0); MEAN PLATELET VOLUME 7.7 fL (7.4-10.4); MONOCYTES ABSOLUTE AUTO 0.71 10^3/uL (0.10-0.80); MONOCYTES PERCENT AUTO 9.3 % (2.0-8.0); NEUTROPHILS PERCENT AUTO 79.9 % (50.0-70.0); PLATELET COUNT,PLT 192 10^3/uL (150-400); RED BLOOD CELL COUNT 2.96 10^6/uL (3.80-5.50); RED CELL DISTRIBUTION WIDTH 20.8 % (11.5-14.5); WHITE BLOOD CELL COUNT,WBC 7.64 10^3/uL (5.00-10.00)
[2024-02-25 09:13] LABS: CHLORIDE,CL 99 mmol/L (98-107); GLUCOSE RANDOM 129 mg/dL (70-140); SODIUM,NA 135 mmol/L (136-145)
[2024-02-25 09:16] LABS: B-TYPE NATRIURETIC PEPTIDE,BNP 1220 pg/mL (0-100); BLOOD UREA NITROGEN,BUN 51 mg/dL (7-18); ESTIMATED GFR 24 mL/min (>=60)
[2024-02-25 10:08] VITALS: BP 106/45; PULSE 69
[2024-02-25] MEDS: Bumetanide 1 MG/4 ML MDV IVPUSH ONE (11:54)
== END 2024-02-25 13:05 | disposition home or self-care (01) ==
LOC: KA.ED 08:32
DX: I13.0 Hypertensive heart and chronic kidney disease with heart failure and stage 1 through stage 4 chronic kidney disease, or unspecified chronic kidney disease (principal); I50.9 Heart failure, unspecified; N18.9 Chronic kidney disease, unspecified; E87.70 Fluid overload, unspecified; E78.00 Pure hypercholesterolemia, unspecified; I48.91 Unspecified atrial fibrillation; Z86.73 Personal history of transient ischemic attack (TIA), and cerebral infarction without residual deficits; Z79.899 Other long term (current) drug therapy; Z91.048 Other nonmedicinal substance allergy status
CPT/HCPCS: 36415; 71045; 80048; 83880; 84484; 85025; 93010; 96374; 99284; 99285-25; J3490

== ENCOUNTER 2024-04-24 08:49 | Emergency (ER) | payer MEDICARE, OTHER ==
[2024-04-24 09:14] VITALS: PULSE 70
[2024-04-24] MEDS: Oxymetazoline 0.05% Nasal Spray 30 ML Bottle NAS ONE (10:12)
[2024-04-24] MEDS: Lidocaine 4% Top Soln 50 ML Bottle MUCMEM ONE (10:12)
[2024-04-24] MEDS: Bacitracin/Neomycin/Polymyxin B Oint 0.9 GM U/D Packet TOP ONE (10:36)
[2024-04-24 10:40] VITALS: BP 114/54
== END 2024-04-24 10:53 | disposition home or self-care (01) ==
LOC: KA.ED 08:49
DX: R04.0 Epistaxis (principal); I48.91 Unspecified atrial fibrillation; Z91.048 Other nonmedicinal substance allergy status; Z79.899 Other long term (current) drug therapy; Z79.01 Long term (current) use of anticoagulants; Z86.73 Personal history of transient ischemic attack (TIA), and cerebral infarction without residual deficits
CPT/HCPCS: 30903; 99283; A9270

== ENCOUNTER 2024-04-25 11:32 | Emergency (ER) | payer MEDICARE, OTHER ==
[2024-04-25 12:08] LABS: BASOPHILS ABSOLUTE AUTO 0.04 10^3/uL (0.00-0.10); BASOPHILS PERCENT AUTO 0.5 % (0.0-1.0); EOSINOPHILS ABSOLUTE AUTO 0.08 10^3/uL (0.10-0.30); HEMATOCRIT 29.1 % (37.0-47.0); HEMOGLOBIN 8.7 g/dL (12.0-16.0); IMMATURE GRAN ABSOLUTE AUTO 0.01 10^3/uL (0.00-0.50); IMMATURE GRAN PERCENT AUTO 0.1 % (0.0-5.0); LYMPHOCYTES ABSOLUTE AUTO 1.08 10^3/uL (1.00-4.00); LYMPHOCYTES PERCENT AUTO 13.1 % (20.0-40.0); MEAN CORPUSCULAR HEMOGLOBIN 27.3 pg (27.0-31.0); MEAN CORPUSCULAR HGB CONC 29.9 g/dL (32.0-36.0); MEAN CORPUSCULAR VOLUME 91.2 fL (82.0-92.0); MEAN PLATELET VOLUME 8.2 fL (7.4-10.4); MONOCYTES ABSOLUTE AUTO 1.09 10^3/uL (0.10-0.80); MONOCYTES PERCENT AUTO 13.2 % (2.0-8.0); NEUTROPHILS ABSOLUTE AUTO 5.96 10^3/uL (2.50-7.00); NEUTROPHILS PERCENT AUTO 72.1 % (50.0-70.0); PLATELET COUNT,PLT 188 10^3/uL (150-400); RED BLOOD CELL COUNT 3.19 10^6/uL (3.80-5.50); WHITE BLOOD CELL COUNT,WBC 8.26 10^3/uL (5.00-10.00)
[2024-04-25 15:13] VITALS: BP 94/51; PULSE 69
== END 2024-04-25 13:12 | disposition home or self-care (01) ==
LOC: KA.ED 11:32
DX: R04.0 Epistaxis (principal); I48.91 Unspecified atrial fibrillation; I10 Essential (primary) hypertension; E78.00 Pure hypercholesterolemia, unspecified; Z91.048 Other nonmedicinal substance allergy status; Z79.899 Other long term (current) drug therapy; Z79.01 Long term (current) use of anticoagulants
CPT/HCPCS: 36415; 85025; 99283

== ENCOUNTER 2024-05-07 14:13 | Inpatient (IN) | payer MEDICARE, OTHER ==
[2024-05-07] MEDS: Bumetanide 1 MG/4 ML MDV IVPUSH ONE (15:42)
[2024-05-07 19:48] LABS: ANION GAP 12.2 mmol/L (5-15); CALCIUM 8.6 mg/dL (8.7-10.3); CARBON DIOXIDE,CO2 28.1 mmol/L (21.0-32.0); CREATININE 2.47 mg/dL (0.51-1.17); EST CRCL DRUG DOSING (CG) 13.89 mL/min; POTASSIUM,K 4.3 mmol/L (3.5-5.1)
[2024-05-07] MEDS ORDERED: Acetaminophen 325 MG Tab PO PRN (23:58)
[2024-05-08] MEDS ORDERED: Non-Formulary Medication 1 Each (Azelastine Hcl [Azelastine Hcl] 137 MCG/0.137 ML Spray.Pu NASBOTH PRN (00:03)
[2024-05-08] MEDS ORDERED: traMADol 50 MG Tab PO PRN (00:03)
[2024-05-08 06:26] LABS: APPEARANCE,URINE CLEAR (CLEAR); BILIRUBIN,URINE NEGATIVE (NEGATIVE); COLOR,URINE LIGHT YELLOW (YELLOW); GLUCOSE,URINE NEGATIVE (NEGATIVE); KETONES,URINE NEGATIVE (NEGATIVE); LEUKOCYTE ESTERASE,URINE TRACE (NEGATIVE); NITRITE,URINE NEGATIVE (NEGATIVE); OCCULT BLOOD,URINE NEGATIVE (NEGATIVE); PROTEIN,URINE NEGATIVE (NEGATIVE); UROBILINOGEN,URINE 0.2 E.U./dL (0.2-1.0)
[2024-05-08 06:38] LABS: BACTERIA,URINE RARE /HPF (NONE TO FEW); EPITHELIAL CELLS,URINE FEW /LPF; RBC,URINE 0-5 /HPF (0-5); WBC,URINE 0-5 /HPF (0-5)
[2024-05-08 07:36] LABS: BASOPHILS ABSOLUTE AUTO 0.03 10^3/uL (0.00-0.10); BASOPHILS PERCENT AUTO 0.4 % (0.0-1.0); EOSINOPHILS PERCENT AUTO 1.4 % (1.0-3.0); HEMATOCRIT 25.9 % (37.0-47.0); HEMOGLOBIN 7.7 g/dL (12.0-16.0); IMMATURE GRAN ABSOLUTE AUTO 0.02 10^3/uL (0.00-0.50); IMMATURE GRAN PERCENT AUTO 0.3 % (0.0-5.0); LYMPHOCYTES ABSOLUTE AUTO 0.95 10^3/uL (1.00-4.00); LYMPHOCYTES PERCENT AUTO 12.9 % (20.0-40.0); MEAN CORPUSCULAR HEMOGLOBIN 28.6 pg (27.0-31.0); MEAN CORPUSCULAR HGB CONC 29.7 g/dL (32.0-36.0); MEAN CORPUSCULAR VOLUME 96.3 fL (82.0-92.0); MEAN PLATELET VOLUME 8.1 fL (7.4-10.4); MONOCYTES ABSOLUTE AUTO 0.85 10^3/uL (0.10-0.80); MONOCYTES PERCENT AUTO 11.5 % (2.0-8.0); NEUTROPHILS ABSOLUTE AUTO 5.41 10^3/uL (2.50-7.00); NEUTROPHILS PERCENT AUTO 73.5 % (50.0-70.0); PLATELET COUNT,PLT 184 10^3/uL (150-400); RED BLOOD CELL COUNT 2.69 10^6/uL (3.80-5.50); WHITE BLOOD CELL COUNT,WBC 7.36 10^3/uL (5.00-10.00)
[2024-05-08 07:53] LABS: ANION GAP 10.4 mmol/L (5-15); CALCIUM 8.5 mg/dL (8.7-10.3); CARBON DIOXIDE,CO2 30.8 mmol/L (21.0-32.0); CREATININE 2.09 mg/dL (0.51-1.17); EST CRCL DRUG DOSING (CG) 16.42 mL/min; POTASSIUM,K 4.2 mmol/L (3.5-5.1)
[2024-05-08] MEDS: Mupirocin Oint 22 GM Tube TOP SCH (08:45)
[2024-05-08] MEDS: Polyethylene Glycol 3350 Powder 17 GM Packet PO SCH (08:46)
[2024-05-08] MEDS: Calcium Carbonate 500 MG Tab.Chew PO SCH (08:46)
[2024-05-08] MEDS: Ferrous Sulfate 325 MG Tab PO SCH (08:47)
[2024-05-08] MEDS: Cholecalciferol (Vitamin D3) 25 MCG Tab PO SCH (08:48)
[2024-05-08] MEDS: Amiodarone 200 MG Tab PO SCH (08:48)
[2024-05-08] MEDS: Allopurinol 100 MG Tab PO SCH (08:48)
[2024-05-08] MEDS: Apixaban 5 MG Tab PO SCH (08:49)
[2024-05-08] MEDS: Multivitamins with Minerals/Iron/Folic Acid/Lycopene Tab PO SCH (08:49)
[2024-05-08] MEDS ORDERED: Losartan 25 MG Tab PO SCH (09:00)
[2024-05-08] MEDS ORDERED: Non-Formulary Medication 1 Each (Olopatadine [Pataday 0.2% Ophth Soln] 2.5 ML Bottle) EYEBOTH SCH (09:00)
[2024-05-08] MEDS ORDERED: Non-Formulary Medication 1 Each (Metoprolol Succinate [Metoprolol Succinate] 100 MG Tab.Er PO SCH (09:00)
[2024-05-08] MEDS ORDERED: Spironolactone 25 MG Tab PO SCH (09:00)
[2024-05-08] MEDS ORDERED: Calcium Carbonate 500 MG Tab.Chew PO PRN (10:58)
[2024-05-08] MEDS: Bumetanide 1 MG/4 ML MDV IVPUSH ONE (14:21)
[2024-05-08] MEDS: Torsemide 20 MG Tab PO SCH (15:39)
[2024-05-08] MEDS: Polyethylene Glycol 400 15 ML Bottle EYEBOTH PRN (19:38)
[2024-05-08] MEDS: diphenhydrAMINE 25 MG Cap PO ONE (22:47)
[2024-05-09 07:44] LABS: ALBUMIN 2.42 g/dL (3.40-5.00); ANION GAP 8.6 mmol/L (5-15); CALCIUM 8.7 mg/dL (8.7-10.3); CARBON DIOXIDE,CO2 32.3 mmol/L (21.0-32.0); CREATININE 1.53 mg/dL (0.51-1.17); EST CRCL DRUG DOSING (CG) 22.43 mL/min; PHOSPHORUS 2.8 mg/dL (2.6-4.7); POTASSIUM,K 3.9 mmol/L (3.5-5.1)
[2024-05-09] MEDS: Hydrocortisone 1% Crm 30 GM Tube TOP ONE (11:31)
[2024-05-09] MEDS: Loratadine 10 MG Tab PO ONE (11:31)
[2024-05-09 12:31] VITALS: BP 108/49; PULSE 78
== END 2024-05-09 12:30 | disposition home or self-care (01) | DRG 291 ==
LOC: KA.ED 14:20 → KA.MS 20:25 → UNDOADMIN 20:55 → UNDODISIN 05-09 12:30
PROVIDERS: ADMIT Physician Assistant Surgical; ATTEND Internal Medicine
DX: I13.0 Hypertensive heart and chronic kidney disease with heart failure and stage 1 through stage 4 chronic kidney disease, or unspecified chronic kidney disease (principal); I50.31 Acute diastolic (congestive) heart failure; N17.9 Acute kidney failure, unspecified; M10.9 Gout, unspecified; R60.0 Localized edema; R79.89 Other specified abnormal findings of blood chemistry; M81.0 Age-related osteoporosis without current pathological fracture; G47.00 Insomnia, unspecified; K59.09 Other constipation; N18.32 Chronic kidney disease, stage 3b; H54.7 Unspecified visual loss; M19.90 Unspecified osteoarthritis, unspecified site; G89.29 Other chronic pain; M54.9 Dorsalgia, unspecified; I10 Essential (primary) hypertension; E78.00 Pure hypercholesterolemia, unspecified; I48.91 Unspecified atrial fibrillation; Z88.8 Allergy status to other drugs, medicaments and biological substances; Z98.49 Cataract extraction status, unspecified eye; Z86.73 Personal history of transient ischemic attack (TIA), and cerebral infarction without residual deficits; Z79.899 Other long term (current) drug therapy; Z79.01 Long term (current) use of anticoagulants; Z98.890 Other specified postprocedural states; Z91.048 Other nonmedicinal substance allergy status
CPT/HCPCS: 36415; 71045; 80048; 80069; 81001; 83880; 84484; 85025; 93005; 93010; 96374; 99223-GT; 99233-GT; 99239-GT; 99284; 99284-25; A9270-GY; J3490; Q3014

== ENCOUNTER 2024-06-02 13:44 | Emergency (ER) | payer MEDICARE, OTHER ==
[2024-06-02 14:03] LABS: BASOPHILS ABSOLUTE AUTO 0.04 10^3/uL (0.00-0.10); BASOPHILS PERCENT AUTO 0.6 % (0.0-1.0); EOSINOPHILS ABSOLUTE AUTO 0.06 10^3/uL (0.10-0.30); EOSINOPHILS PERCENT AUTO 0.9 % (1.0-3.0); HEMATOCRIT 31.9 % (37.0-47.0); HEMOGLOBIN 9.6 g/dL (12.0-16.0); IMMATURE GRAN ABSOLUTE AUTO 0.02 10^3/uL (0.00-0.50); IMMATURE GRAN PERCENT AUTO 0.3 % (0.0-5.0); LYMPHOCYTES ABSOLUTE AUTO 0.94 10^3/uL (1.00-4.00); LYMPHOCYTES PERCENT AUTO 14.4 % (20.0-40.0); MEAN CORPUSCULAR HEMOGLOBIN 28.8 pg (27.0-31.0); MEAN CORPUSCULAR HGB CONC 30.1 g/dL (32.0-36.0); MEAN CORPUSCULAR VOLUME 95.8 fL (82.0-92.0); MEAN PLATELET VOLUME 8.5 fL (7.4-10.4); MONOCYTES ABSOLUTE AUTO 0.69 10^3/uL (0.10-0.80); MONOCYTES PERCENT AUTO 10.6 % (2.0-8.0); NEUTROPHILS ABSOLUTE AUTO 4.77 10^3/uL (2.50-7.00); NEUTROPHILS PERCENT AUTO 73.2 % (50.0-70.0); PLATELET COUNT,PLT 196 10^3/uL (150-400); RED BLOOD CELL COUNT 3.33 10^6/uL (3.80-5.50); RED CELL DISTRIBUTION WIDTH 19.4 % (11.5-14.5); WHITE BLOOD CELL COUNT,WBC 6.52 10^3/uL (5.00-10.00)
[2024-06-02 14:13] VITALS: BP 103/45; PULSE 70
[2024-06-02] MEDS ORDERED: Sodium Chloride 0.9% 10 ML Syringe FLUSH PRN (14:13)
[2024-06-02 14:35] LABS: ALBUMIN 2.63 g/dL (3.40-5.00); ANION GAP 12.4 mmol/L (5-15); BILIRUBIN TOTAL 0.5 mg/dL (0.2-1.0); CALCIUM 9.1 mg/dL (8.7-10.3); CARBON DIOXIDE,CO2 28.1 mmol/L (21.0-32.0); CREATININE 1.98 mg/dL (0.51-1.17); EST CRCL DRUG DOSING (CG) 17.33 mL/min; MAGNESIUM 2.1 mg/dL (1.8-2.4); POTASSIUM,K 4.5 mmol/L (3.5-5.1); PROTEIN TOTAL,TP 7.3 g/dL (6.4-8.2)
[2024-06-02] MEDS: Sodium Chloride 0.9% 500 ML IV SCH (16:00)
== END 2024-06-02 19:32 ==
LOC: KA.ED 13:44
DX: R00.0 Tachycardia, unspecified (principal); I13.0 Hypertensive heart and chronic kidney disease with heart failure and stage 1 through stage 4 chronic kidney disease, or unspecified chronic kidney disease; I50.9 Heart failure, unspecified; N18.32 Chronic kidney disease, stage 3b; I48.91 Unspecified atrial fibrillation; J45.909 Unspecified asthma, uncomplicated; Z79.899 Other long term (current) drug therapy; Z91.048 Other nonmedicinal substance allergy status; Z88.9 Allergy status to unspecified drugs, medicaments and biological substances
CPT/HCPCS: 36415; 71046; 80053; 83605; 83735; 83880; 84484; 85025; 93005; 93010; 96360; 99284; 99285-25; J7040